=== PATIENT | female | born 1980 | race Caucasian/White ===

== ENCOUNTER 2022-06-24 03:56 | Inpatient (IN) | payer OTHER ==
[~2022-06-24] VITALS: Ht 157.5 cm; Wt 80.7 kg
[2022-06-24] MEDS ORDERED: OXYTOCIN 20 UNITS in LACTATED RINGERS 1,000 ML IV SCH (04:05)
[2022-06-24] MEDS ORDERED: MORPHINE SULFATE 5 MG/ML VIAL IVP PRN (04:05)
[2022-06-24] MEDS ORDERED: ONDANSETRON 4 MG/2 ML VIAL IVP PRN (04:05)
[2022-06-24] MEDS ORDERED: METHYLERGONOVINE 0.2 MG/ML AMP IM PRN ×2 (04:05→09:20)
[2022-06-24] MEDS ORDERED: CARBOPROST 250 MCG/ML AMP IM PRN (04:05)
[2022-06-24] MEDS ORDERED: LACTATED RINGERS 1,000 ML IV SCH (04:05)
[2022-06-24] MEDS ORDERED: PRETAB PO (04:35)
[2022-06-24 04:36] VITALS: BP 139/76
[2022-06-24 06:01] LABS: APPEARANCE,URINE CLEAR (CLEAR); BILIRUBIN,URINE NEGATIVE (NEGATIVE); BLOOD, URINE 3+ (NEGATIVE); COLOR,URINE YELLOW (YELLOW); LEUKOCYTE ESTERASE ,URINE TRACE (NEGATIVE); NITRITE, URINE NEGATIVE (NEGATIVE); UGLUCOSE NEGATIVE (NEGATIVE)
[2022-06-24 06:03] LABS: BASOPHILS % (AUTO) 0.3 % (0.0-2.0); EOSINOPHILS # (AUTO) 0.1 K/uL (0-0.4); EOSINOPHILS % (AUTO) 0.4 % (0.0-4.0); HEMATOCRIT 34.8 % (36-48); HEMOGLOBIN 11.2 g/dL (12.0-16.0); LYMPHOCYTES # (AUTO) 0.8 K/uL (2.5-16.5); LYMPHOCYTES % (AUTO) 5.6 % (20.5-51.1); MEAN CORPUSCULAR HEMOGLOBIN 26 pg (27-31); MEAN CORPUSCULAR HGB CONC 32 g/dL (33-37); MONOCYTES # (AUTO) 0.8 K/uL (0.8-1.0); MONOCYTES % (AUTO) 5.3 % (1.7-9.3); NEUTROPHILS # (AUTO) 13.4 K/uL (1.8-7.7); PLATELET COUNT (AUTO) 178 K/uL (140-450); RED BLOOD CELL COUNT(AUTO) 4.34 MIL/uL (4.20-5.40); WHITE BLOOD COUNT (AUTO) 15.1 K/uL (4.8-10.8)
[2022-06-24 06:04] LABS: ALBUMIN 2.5 g/dL (3.4-5.0); ANION GAP 14.4 (8-16); CARBON DIOXIDE 20.9 mmol/L (21-32); CREATININE 0.6 mg/dL (0.6-1.3); POTASSIUM 4.3 mmol/L (3.5-5.1); TOTAL BILIRUBIN 0.3 mg/dL (0.0-1.0)
[2022-06-24] MEDS ORDERED: OXYTOCIN 20 UNITS/LR PREMIX 1,000 ML IV ONE (06:28)
[2022-06-24 06:40] LABS: NEUTROPHILS % (AUTO) 88.4 % (42.2-75.2)
[2022-06-24 06:47] LABS: TRICHOMONAS,URINE None Seen /HPF (None Seen); WBC,URINE 0-5 /HPF (0-5); YEAST,URINE None Seen /HPF (None Seen)
[2022-06-24] MEDS ORDERED: LIDOCAINE 1% 500 MG/50 ML VIAL ONE (07:04)
--- NOTE | 2022-06-24 09:04 | NUR ---
PATIENT HAS BEEN SCREENED AND CATEGORIZED LOW NUTRITION RISK. PATIENT WILL BE SEEN WITHIN 7 DAYS OF ADMISSION. 06/24/21-07/01/[address]
[2022-06-24] MEDS ORDERED: BENZOCAINE/MENTHOL 20%-0.5% 60 GM CAN TP PRN (09:20)
[2022-06-24] MEDS ORDERED: MEASLES, MUMPS, AND RUBELLA 1 VIAL SQVAC ONE (09:20)
[2022-06-24] MEDS ORDERED: IBUPROFEN 800 MG TAB PO PRN (09:20)
[2022-06-24] MEDS ORDERED: OXYTOCIN 10 UNITS/ML VIAL IM PRN (09:20)
[2022-06-24] MEDS ORDERED: METHYLERGONOVINE 0.2 MG TAB PO PRN (09:20)
[2022-06-25 05:49] LABS: HEMATOCRIT 26.8 % (36-48); HEMOGLOBIN 8.5 g/dL (12.0-16.0)
[2022-06-25] MEDS ORDERED: MEASLES, MUMPS, AND RUBELLA 1 VIAL SQVAC SCH (10:40)
== END 2022-06-25 11:10 | disposition home or self-care (01) | DRG 560 ==
LOC: MLD 03:56 → MFCC 09:10
PROVIDERS: ADMIT Obstetrics & Gynecology; ATTEND Obstetrics & Gynecology
PROC: 10E0XZZ Delivery of Products of Conception, External Approach (ICD-10-PCS; principal; 2022-06-24)
PROC: 0HQ9XZZ Repair Perineum Skin, External Approach (ICD-10-PCS; 2022-06-24)
DX: O99.02 Anemia complicating childbirth (principal); Z37.0 Single live birth; O70.0 First degree perineal laceration during delivery; Z20.822 Contact with and (suspected) exposure to COVID-19; Z3A.39 39 weeks gestation of pregnancy
CPT/HCPCS: 36415; 59409; 80053; 81001; 85018; 85025; 86592; 86886; 86900; 86901; J2001; J2590; J7120